=== PATIENT | female | born 1980 | race American Indian/Alaskan Native ===

== ENCOUNTER 2017-02-27 15:30 | Emergency (ER) | payer MEDICARE ==
[2017-02-27 16:42] VITALS: BP 186/106
[2017-02-27 17:05] LABS: Basophils % (Auto) 0.5 % (0.0-1.8); Eosinophils % (Auto) 0.4 % (0.0-4.3); Hematocrit 42.3 % (30.3-42.9); Hemoglobin 13.9 gm/dl (10.1-14.3); Mean Corpuscular HGB Conc 33 % (30-34); Mean Corpuscular Hemoglobin 31 pg (28-32); Mean Corpuscular Volume 95 fl (79-97); Platelet Count 293 K/mm3 (140-440); Red Blood Count 4.48 M/mm3 (3.65-5.03); Red Cell Distribution Width 15.7 % (13.2-15.2); White Blood Count 6.8 K/mm3 (4.5-11.0)
[2017-02-27 17:24] LABS: Alanine Aminotransferase 8 units/L (7-56); Alkaline Phosphatase 59 units/L (35-129); Anion Gap 18 mmol/L; BUN/Creatinine Ratio 7.77; Blood Urea Nitrogen 7 mg/dL (7-17); Calcium 9.2 mg/dL (8.4-10.2); Carbon Dioxide 25 mmol/L (22-30); Chloride 101.2 mmol/L (98-107); Glucose 89 mg/dL (65-100); Lipase 20 units/L (13-60); Sodium 141 mmol/L (137-145)
[2017-02-27 17:29] LABS: Potassium 2.8 mmol/L (3.6-5.0)
--- NOTE | 2017-03-03 19:11 | ED Elopement Review ---
ED Pt Elopement review - Results review Lab results: Laboratory Tests 02/27/17 02/27/17 16:44 16:44 WBC 6.8 RBC 4.48 Hgb 13.9 Hct 42.3 MCV 95 MCH 31 MCHC 33 RDW 15.7 H Plt Count 293 Lymph % (Auto) 34.1 [place] % (Auto) 7.7 H Eos % (Auto) 0.4 Baso % (Auto) 0.5 Lymph # 2.3 [place] # 0.5 Eos # 0.0 Baso # 0.0 Seg Neutrophils % 57.3 Seg Neutrophils # 3.9 Sodium 141 Potassium 2.8 L* Chloride 101.2 Carbon Dioxide 25 Anion Gap 18 BUN 7 Creatinine 0.9 Estimated GFR > 60 BUN/Creatinine Ratio 7.77 Glucose 89 Calcium 9.2 Total Bilirubin 1.10 AST 16 ALT 8 Alkaline Phosphatase 59 Total Protein 8.0 Albumin 4.0 Albumin/Globulin Ratio 1.0 Lipase 20 - Call Back decision Pt Call Back Decision: Pt to F/U with PMD (patient should follow-up with primary care doctor for hypokalemia)
== END 2017-02-27 23:30 | disposition left against medical advice (07) ==
LOC: ED 15:30
DX: R10.9 Unspecified abdominal pain (principal)
CPT/HCPCS: 36415; 80053; 83690; 85025

== ENCOUNTER 2017-06-29 15:47 | Emergency (ER) | payer MEDICARE ==
[2017-06-29] MEDS ORDERED: NACL 0.9% 500 ML 500 ML IV ONE (16:28)
[2017-06-29] MEDS ORDERED: MORPHINE IV ONE (17:30)
[2017-06-29] MEDS ORDERED: NACL 0.9% 1000 ML 2,000 ML IV ONE (17:30)
[2017-06-29] MEDS ORDERED: ZOFRAN IV ONE (17:31)
[2017-06-29] MEDS ORDERED: TYLENOL PO ONE (17:31)
[2017-06-29] MEDS ORDERED: DILAUDID IV ONE ×2 (17:31→22:12)
[2017-06-29] MEDS ORDERED: BENADRYL PO ONE (17:31)
--- NOTE | 2017-06-29 17:37 | Emergency Department Report ---
ED General Adult HPI - General Chief complaint: Abdominal Pain Stated complaint: SEVERE STOMACH PAIN Time Seen by Provider: 06/29/17 17:19 Source: patient, RN notes reviewed Mode of arrival: Wheelchair Limitations: No Limitations - History of Present Illness Initial comments: This is a 37-year-old female, the patient is previously known to this provider. She reports that her clinician oncology is Dr. Hanna at [facility]. She reports a history of cervical cancer, and reports that she is currently receiving cisplatin therapy. She comes to the ER with a complaint of diffuse abdominal pain and nausea and vomiting. She reports her pain is typically improved with hydromorphone, Zofran, and IV diphenhydramine. Abdominal pain is diffuse and sharp, it is "all over", and decreased with rest as well as the aforementioned pain medication. She is also missed a fever, malaise, but denies diarrhea. She denies irritative obstructive urinary symptoms. 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 -: Gradual Location: abdomen Severity scale (0 -10): 10 Quality: burning, stabbing, aching Consistency: intermittent Improves with: medication, rest Worsens with: movement Associated Symptoms: fever/chills, loss of appetite, malaise, nausea/vomiting, weakness - Related Data Allergies Allergy/AdvReac Type Severity Reaction Status Date / Time morphine AdvReac Hives Verified 06/29/17 16:24 naloxone HCl [From Narcan] AdvReac Itching Verified 06/29/17 16:25 ED Review of Systems ROS: Stated complaint: SEVERE STOMACH PAIN Other details as noted in HPI Constitutional: fever, malaise, weakness Eyes: denies: vision change ENT: denies: epistaxis Respiratory: denies: cough Cardiovascular: denies: chest pain Gastrointestinal: abdominal pain, nausea, vomiting Genitourinary: denies: dysuria Musculoskeletal: arthralgia, myalgia Skin: denies: lesions Neurological: weakness ED Past Medical Hx - Past Medical History Previous Medical History?: Yes Hx of Cancer: Yes Additional medical history: cervical CA - Surgical History Past Surgical History?: Yes Additional Surgical History: partial colon removed - Social History Smoking Status: Current Every Day Smoker Substance Use Type: None ED Physical Exam - General Limitations: No Limitations General appearance: alert, in no apparent distress - Head Head exam: Present: atraumatic, normocephalic - Eye Eye exam: Present: normal appearance, EOMI. Absent: nystagmus - ENT ENT exam: Present: normal exam, normal orophraynx, mucous membranes moist, normal external ear exam - Neck Neck exam: Present: normal inspection, full ROM. Absent: tenderness, meningismus - Respiratory Respiratory exam: Present: normal lung sounds bilaterally. Absent: respiratory distress, wheezes, rales, rhonchi, stridor, chest wall tenderness, accessory muscle use, decreased breath sounds, prolonged expiratory - Cardiovascular Cardiovascular Exam: Present: regular rate, normal rhythm, normal heart sounds. Absent: bradycardia, tachycardia, irregular rhythm, systolic murmur, diastolic murmur, rubs, gallop - GI/Abdominal GI/Abdominal exam: Present: soft, tenderness, normal bowel sounds. Absent: distended, guarding, rebound, rigid, pulsatile mass - Extremities Exam Extremities exam: Present: normal inspection, full ROM, normal capillary refill. Absent: pedal edema, joint swelling, calf tenderness - Back Exam Back exam: Present: normal inspection, full ROM. Absent: tenderness, CVA tenderness (R), CVA tenderness (L), muscle spasm, paraspinal tenderness, vertebral tenderness - Neurological Exam Neurological exam: Present: alert, oriented X3, other (Extraocular movements intact. Tongue midline. No facial droop. Facial sensation intact to light touch in the V1, V2, V3 distribution bilaterally. 5 and 5 strength in 4 extremities.. Sensation is intact to light touch in 4 extremities.). Absent: motor sensory deficit - Psychiatric Psychiatric exam: Present: normal affect, normal mood - Skin Skin exam: Present: warm, dry, intact, normal color. Absent: rash ED Course Vital Signs 06/29/17 06/29/17 06/29/17 16:19 16:56 16:57 Temperature 100.7 F H Pulse Rate 68 63 62 Respiratory 16 15 19 Rate Blood Pressure 148/97 Blood Pressure 152/100 [Right] O2 Sat by Pulse 98 100 99 Oximetry 06/29/17 06/29/17 06/29/17 17:00 17:15 17:30 Temperature Pulse Rate 62 59 L 61 Respiratory 17 13 16 Rate Blood Pressure 169/98 169/98 162/95 Blood Pressure [Right] O2 Sat by Pulse 99 100 100 Oximetry 06/29/17 06/29/17 06/29/17 17:45 18:00 18:15 Temperature Pulse Rate 65 79 74 Respiratory 15 16 15 Rate Blood Pressure 162/95 110/59 110/59 Blood Pressure [Right] O2 Sat by Pulse 100 96 97 Oximetry 06/29/17 06/29/17 06/29/17 18:21 18:57 19:00 Temperature Pulse Rate 53 L Respiratory 13 Rate Blood Pressure 110/59 120/81 Blood Pressure [Right] O2 Sat by Pulse 100 99 100 Oximetry 06/29/17 06/29/17 06/29/17 19:15 19:30 19:45 Temperature Pulse Rate 77 58 L 88 Respiratory 17 13 18 Rate Blood Pressure 110/59 123/80 123/80 Blood Pressure [Right] O2 Sat by Pulse 99 97 Oximetry 06/29/17 06/29/17 06/29/17 20:00 20:15 20:31 Temperature Pulse Rate 81 78 62 Respiratory 15 19 18 Rate Blood Pressure 116/81 116/81 168/108 Blood Pressure [Right] O2 Sat by Pulse 97 98 99 Oximetry 06/29/17 06/29/17 06/29/17 20:45 21:00 21:15 Temperature Pulse Rate 79 66 76 Respiratory 19 16 18 Rate Blood Pressure 168/108 160/105 160/105 Blood Pressure [Right] O2 Sat by Pulse 97 97 97 Oximetry 06/29/17 06/29/17 06/29/17 21:30 21:45 22:00 Temperature Pulse Rate 83 74 73 Respiratory 18 21 20 Rate Blood Pressure 161/94 161/94 167/92 Blood Pressure [Right] O2 Sat by Pulse 97 97 98 Oximetry 06/29/17 06/29/17 06/29/17 22:15 22:30 22:45 Temperature Pulse Rate 83 78 94 H Respiratory 19 15 22 Rate Blood Pressure 167/92 139/76 139/76 Blood Pressure [Right] O2 Sat by Pulse 98 96 95 Oximetry 06/29/17 06/29/17 06/29/17 23:00 23:15 23:30 Temperature Pulse Rate 89 83 80 Respiratory 15 15 15 Rate Blood Pressure 104/54 104/54 98/54 Blood Pressure [Right] O2 Sat by Pulse 96 96 95 Oximetry 06/29/17 23:45 Temperature Pulse Rate 76 Respiratory 14 Rate Blood Pressure 98/54 Blood Pressure [Right] O2 Sat by Pulse 97 Oximetry - EJ/Peripheral Line Neck L Time Out Performed: Yes Indications: multiple IV sites needed Skin Cleansed in Sterile Fashion: Yes Size: 18 Dressing Placed: Tegaderm Patient Tolerated Procedure: well ED Medical Decision Making - Lab Data Result diagrams: 06/29/17 Unknown 06/29/17 Unknown Vital Signs 06/29/17 06/29/17 06/29/17 16:19 16:56 16:57 Temperature 100.7 F H Pulse Rate 68 63 62 Respiratory 16 15 19 Rate Blood Pressure 148/97 Blood Pressure 152/100 [Right] O2 Sat by Pulse 98 100 99 Oximetry 06/29/17 06/29/17 06/29/17 17:00 17:15 17:30 Temperature Pulse Rate 62 59 L 61 Respiratory 17 13 16 Rate Blood Pressure 169/98 169/98 162/95 Blood Pressure [Right] O2 Sat by Pulse 99 100 100 Oximetry 06/29/17 06/29/17 06/29/17 17:45 18:00 18:15 Temperature Pulse Rate 65 79 74 Respiratory 15 16 15 Rate Blood Pressure 162/95 110/59 110/59 Blood Pressure [Right] O2 Sat by Pulse 100 96 97 Oximetry 06/29/17 06/29/17 06/29/17 18:21 18:57 19:00 Temperature Pulse Rate 53 L Respiratory 13 Rate Blood Pressure 110/59 120/81 Blood Pressure [Right] O2 Sat by Pulse 100 99 100 Oximetry 06/29/17 06/29/17 06/29/17 19:15 19:30 19:45 Temperature Pulse Rate 77 58 L 88 Respiratory 17 13 18 Rate Blood Pressure 110/59 123/80 123/80 Blood Pressure [Right] O2 Sat by Pulse 99 97 Oximetry Lab Results 06/29/17 06/29/17 06/29/17 Range/Units 19:28 Unknown Unknown WBC 6.5 (4.5-11.0) K/mm3 RBC 4.20 (3.65-5.03) M/mm3 Hgb 12.7 (10.1-14.3) gm/dl Hct 39.1 (30.3-42.9) % MCV 93 (79-97) fl MCH 30 (28-32) pg MCHC 33 (30-34) % RDW 14.5 (13.2-15.2) % Plt Count 263 (140-440) K/mm3 Lymph % (Auto) 25.8 (13.4-35.0) % [place] % (Auto) 6.1 (0.0-7.3) % Eos % (Auto) 0.1 (0.0-4.3) % Baso % (Auto) 1.1 (0.0-1.8) % Lymph # 1.7 (1.2-5.4) K/mm3 [place] # 0.4 (0.0-0.8) K/mm3 Eos # 0.0 (0.0-0.4) K/mm3 Baso # 0.1 (0.0-0.1) K/mm3 Seg Neutrophils % 66.9 (40.0-70.0) % Seg Neutrophils # 4.3 (1.8-7.7) K/mm3 PT 13.4 (12.2-14.9) Sec. INR 1.03 (0.87-1.13) VBG pH (7.320-7.420) Sodium (137-145) mmol/L Potassium (3.6-5.0) mmol/L Chloride (98-107) mmol/L Carbon Dioxide (22-30) mmol/L Anion Gap mmol/L BUN (7-17) mg/dL Creatinine (0.7-1.2) mg/dL Estimated GFR ml/min BUN/Creatinine Ratio % Glucose (65-100) mg/dL Lactic Acid 2.00 (0.7-2.0) mmol/L Calcium (8.4-10.2) mg/dL Total Bilirubin (0.1-1.2) mg/dL AST (5-40) units/L ALT (7-56) units/L Alkaline Phosphatase (35-129) units/L Total Protein (6.3-8.2) g/dL Albumin (3.9-5) g/dL Albumin/Globulin Ratio % Lipase (13-60) units/L 06/29/17 06/29/17 06/29/17 Range/Units Unknown Unknown Unknown WBC (4.5-11.0) K/mm3 RBC (3.65-5.03) M/mm3 Hgb (10.1-14.3) gm/dl Hct (30.3-42.9) % MCV (79-97) fl MCH (28-32) pg MCHC (30-34) % RDW (13.2-15.2) % Plt Count (140-440) K/mm3 Lymph % (Auto) (13.4-35.0) % [place] % (Auto) (0.0-7.3) % Eos % (Auto) (0.0-4.3) % Baso % (Auto) (0.0-1.8) % Lymph # (1.2-5.4) K/mm3 [place] # (0.0-0.8) K/mm3 Eos # (0.0-0.4) K/mm3 Baso # (0.0-0.1) K/mm3 Seg Neutrophils % (40.0-70.0) % Seg Neutrophils # (1.8-7.7) K/mm3 PT (12.2-14.9) Sec. INR (0.87-1.13) VBG pH 7.445 H (7.320-7.420) Sodium 141 (137-145) mmol/L Potassium 3.0 L (3.6-5.0) mmol/L Chloride 98.8 (98-107) mmol/L Carbon Dioxide 27 (22-30) mmol/L Anion Gap 18 mmol/L BUN 8 (7-17) mg/dL Creatinine 0.8 (0.7-1.2) mg/dL Estimated GFR > 60 ml/min BUN/Creatinine Ratio 10.00 % Glucose 102 H (65-100) mg/dL Lactic Acid 1.70 (0.7-2.0) mmol/L Calcium 9.0 (8.4-10.2) mg/dL Total Bilirubin 0.90 (0.1-1.2) mg/dL AST 15 (5-40) units/L ALT 9 (7-56) units/L Alkaline Phosphatase 57 (35-129) units/L Total Protein 8.1 (6.3-8.2) g/dL Albumin 4.0 (3.9-5) g/dL Albumin/Globulin Ratio 1.0 % Lipase 13 (13-60) units/L - Radiology Data Radiology results: report reviewed, image reviewed CT scan of the abdomen and pelvis with IV contrast demonstrates colitis, focal colon thickening, diffuse small bowel ileus, obstructing right-sided ureteropelvic stone. - Medical Decision Making Differential diagnosis: Radiation colitis, obstructive uropathy, enteritis, drug -seeking behavior, fever related to malignancy Assessment and plan: 37-year-old female with complex surgical history, oncologic history, with fever, nausea and vomiting, multiple CT scan findings. This hospital does not have urology available for consultation this evening, and given her fever, she will require urgent urologic consultation. Case discussed with medical oncologist at [facility], Dr. Thomas, at [place], who informed him that the patient has completed her chemotherapy in March of this year, and has known history of radiation colitis, and has had multiple hospital admissions. Case was also discussed with the Hospital physician at the same Hospital, Dr. Schulz, and she graciously accepted the patient as a transfer for definitive management for the numerous aforementioned findings. We are currently awaiting urologic consultation to call back from the [facility] As his hospital does not have urology on-call or available, and all the patient's oncologic records and care has been at the aforementioned facility, I believe it is in the patient's best interest to be transferred for definitive management. Critical care attestation.: If time is entered above; I have spent that time in minutes in the direct care of this critically ill patient, excluding procedure time. ED Disposition Clinical Impression: Obstructive uropathy, Acute febrile illness, Abdominal pain [facility] IP Is pt being admited?: No Does the pt Need Aspirin: No Condition: Good Instructions: Abdominal Pain (ED) Referrals: PRIMARY CARE, [Primary Care Provider] - 3-5 Days
[2017-06-29] MEDS ORDERED: MAXIPIME/NS 2 GM/100 ML 2 GM/100 ML BAG IV ONE (18:00)
[2017-06-29 18:02] LABS: Basophils % (Auto) 1.1 % (0.0-1.8); Eosinophils % (Auto) 0.1 % (0.0-4.3); Hematocrit 39.1 % (30.3-42.9); Hemoglobin 12.7 gm/dl (10.1-14.3); Mean Corpuscular HGB Conc 33 % (30-34); Mean Corpuscular Hemoglobin 30 pg (28-32); Mean Corpuscular Volume 93 fl (79-97); Platelet Count 263 K/mm3 (140-440); Red Cell Distribution Width 14.5 % (13.2-15.2); White Blood Count 6.5 K/mm3 (4.5-11.0)
[2017-06-29 18:10] LABS: INR 1.03 (0.87-1.13)
--- NOTE | 2017-06-29 18:12 | XRay Report ---
FINAL REPORT PROCEDURE: XR CHEST 1V AP TECHNIQUE: Chest radiograph anteroposterior view. CPT 68299 HISTORY: possible Sepsis COMPARISON: No prior studies are available for comparison. FINDINGS: Heart: Normal. Mediastinum/Vessels: Normal. Lungs/Pleural space: Normal. Bony thorax: No acute osseous abnormality. Life support devices: None. IMPRESSION: No acute cardiopulmonary abnormality.
[2017-06-29] MEDS ORDERED: NACL ONE (18:16)
[2017-06-29 18:18] LABS: Alanine Aminotransferase 9 units/L (7-56); Alkaline Phosphatase 57 units/L (35-129); Anion Gap 18 mmol/L; Blood Urea Nitrogen 8 mg/dL (7-17); Carbon Dioxide 27 mmol/L (22-30); Chloride 98.8 mmol/L (98-107); Glucose 102 mg/dL (65-100); Lipase 13 units/L (13-60); Sodium 141 mmol/L (137-145); Total Protein 8.1 g/dL (6.3-8.2)
--- NOTE | 2017-06-29 19:04 | Cat Scan Report ---
FINAL REPORT EXAM: CT ABDOMEN PELVIS W CON HISTORY: diffuse abdominal pain TECHNIQUE: CT abdomen and pelvis with intravenous contrast PRIORS: None. FINDINGS: No acute abnormality identified in the lung bases. No focal abnormality identified within the liver parenchyma. The spleen demonstrates normal size and attenuation. No pancreatic abnormalities seen. The kidneys demonstrate symmetric contrast enhancement. No evidence of hydronephrosis. There is right renal pelvicaliectasis. No obstructing calculus identified. Consideration given to right UPJ obstruction. The adrenal glands are unremarkable Abdominal aorta is normal in caliber. No pathologically enlarged lymph nodes are identified. No signs of free fluid or free air There is mild distention of fluid-filled small bowel loops likely reflecting ileus. There is edematous mucosal thickening of the sigmoid colon and rectum. Midline abdominal scarring noted is Urinary bladder is unremarkable. IMPRESSION: Mucosal thickening of the sigmoid and rectum likely reflecting colitis. Ulcerative colitis is a consideration. Mild prominence of small bowel loops most likely reflecting mild generalized ileus Right pelvicaliectasis concerning for UPJ obstruction
[2017-06-29] MEDS ORDERED: NACL 0.9% 1000 ML 1,000 ML IV ONE (19:54)
[2017-06-29] MEDS ORDERED: NACL 0.9% 1000 ML 1,000 ML ONE (19:58)
[2017-06-29] MEDS: KCL 10MEQ/100ML 10 MEQ/100 ML BAG IV SCH ×4 (20:01→23:42)
[2017-06-29] MEDS ORDERED: MAGNESIUM SULFATE 2GM/50ML 2 GM/50 ML BAG IV ONE (20:35)
[2017-06-30 02:12] VITALS: BP 124/74
== END 2017-06-30 02:12 | disposition short-term general hospital (02) ==
LOC: MERGE 15:47 → ED 15:47
DX: N13.9 Obstructive and reflux uropathy, unspecified (principal); F17.210 Nicotine dependence, cigarettes, uncomplicated; Z88.6 Allergy status to analgesic agent; Z88.8 Allergy status to other drugs, medicaments and biological substances
CPT/HCPCS: 36415; 36569; 71010; 74177; 80053; 82140; 82805; 83690; 83735; 85025; 85610; 96361; 96365; 96367; 96375; 99285; J0692; J1170; J2405; J3475; J3480; J7030; J7040; Q9967; J2270

== ENCOUNTER 2021-10-10 07:49 | Emergency (ER) | payer MEDICARE, MEDICAID ==
[2021-10-10] MEDS ORDERED: HYDROmorphone 1 MG/1 ML INJ IV ONE (08:28)
[2021-10-10] MEDS ORDERED: SODIUM CHLORIDE 0.9% 1000 ML 1,000 ML IV ONE (08:28)
[2021-10-10] MEDS ORDERED: ONDANSETRON 4 MG/2 ML INJ IV ONE (08:28)
[2021-10-10] MEDS ORDERED: diphenhydrAMINE 50 MG/ML VIAL IV ONE (08:29)
--- NOTE | 2021-10-10 08:39 | Emergency Department Report ---
HPI - General Chief Complaint: Nausea/Vomiting/Diarrhea Time Seen by Provider: 10/10/21 08:07 - HPI HPI: Room 24 (1 of 2) The patient is a 41-year-old female present with a chief complaint of right flank pain and stomach pain. The patient has a history of cervical CA and last received chemotherapy approximately 1 week ago. The patient states for the past 6 days she has had pain around her colostomy stoma. Patient states there has been an increase of output from her stoma but no other changes noted. Patient states for the past 3 days she has had pain in her right flank. Patient denies nausea vomiting or history of fever. The patient presents to the ED today with her daughter who is also a patient who presents with nausea and vomiting x1 w [place]. ED Past Medical Hx - Past Medical History Previous Medical History?: Yes Hx of Cancer: Yes (Cervical CA s/p chemo on XRT) Additional medical history: cervical CA, DVT - Surgical History Hx Cholecystectomy: Yes Additional Surgical History: partial colon removed. Colostomy. , Ureteral stent - Family History Family history: no significant - Social History Smoking Status: Current Every Day Smoker (Black and milds) Substance Use Type: Marijuana - Medications Home Medications: Home Medications Medication Instructions Recorded Confirmed Last Taken Type Dilaudid 8 mg PO QID 02/22/16 09/30/16 02/22/16 History Morphine TAB 60 mg PO BID 02/22/16 09/30/16 02/22/16 History Ciprofloxacin HCl [Ciprofloxacin 500 mg PO Q12H #20 tab 10/01/16 Unknown Rx TAB] Dicyclomine [Bentyl] 20 mg PO Q8H PRN #30 tablet 10/01/16 Unknown Rx Pantoprazole [Protonix] 40 mg PO QDAY #14 tablet 10/01/16 Unknown Rx Promethazine [Phenergan] 25 mg PO Q6HR PRN #15 tab 10/01/16 Unknown Rx metroNIDAZOLE [Flagyl] 500 mg PO Q8HR #30 tablet 10/01/16 Unknown Rx Phenazopyridine [Pyridium] 200 mg PO TID #6 tab 10/10/21 Unknown Rx Sulfamethoxazole/Trimethoprim 1 each PO BID #20 10/10/21 Unknown Rx [Bactrim DS TAB] levoFLOXacin [Levaquin TAB] 500 mg PO QDAY #10 tablet 10/10/21 Unknown Rx ED Review of Systems ROS: Stated complaint: N/V/D Other details as noted in HPI Constitutional: denies: fever Eyes: denies: eye pain ENT: denies: throat pain Respiratory: no symptoms reported Cardiovascular: denies: chest pain Endocrine: no symptoms reported Gastrointestinal: abdominal pain. denies: nausea, vomiting Genitourinary: denies: dysuria Musculoskeletal: back pain Neurological: denies: headache Physical Exam - Physical Exam Vital Signs: Vital Signs 10/10/21 08:05 Temperature 99.6 F Pulse Rate 106 H Respiratory 20 Rate Blood Pressure 128/64 [Right] O2 Sat by Pulse 97 Oximetry Physical Exam: GENERAL: The patient is well-developed well-nourished female lying on stretcher moaning appearing to be in moderate discomfort HEENT: Normocephalic. Atraumatic. Extraocular motions are intact. Patient has moist mucous membranes. NECK: Supple. Trachea midline CHEST/LUNGS: Clear to auscultation. There is no respiratory distress noted. HEART/CARDIOVASCULAR: Regular. There is no tachycardia. There is no gallop rub or murmur. ABDOMEN: Abdomen is soft, with tenderness to palpation bilateral lower quadrants. Stoma appears patent and healthy with output present colostomy bag. Patient has normal bowel sounds. There is no abdominal distention. SKIN: There is no rash. There is no edema. There is no diaphoresis. NEURO: The patient is awake, alert, and oriented. The patient is cooperative. The patient has no focal neurologic deficits. The patient has normal speech. GCS 15 MUSCULOSKELETAL: There is no evidence of acute injury. ED Course Vital Signs 10/10/21 08:05 Temperature 99.6 F Pulse Rate 106 H Respiratory 20 Rate Blood Pressure 128/64 [Right] O2 Sat by Pulse 97 Oximetry ED Medical Decision Making - Lab Data Result diagrams: 10/10/21 09:34 10/10/21 09:34 Laboratory Tests 10/10/21 10/10/21 10/10/21 09:34 09:34 09:34 WBC 8.6 RBC 4.44 Hgb 13.0 Hct 40.4 MCV 91 MCH 29 MCHC 32 RDW 14.8 Plt Count 267 Lymph % (Auto) 30.8 [place] % (Auto) 9.6 H Eos % (Auto) 1.0 Baso % (Auto) 0.4 Lymph # (Auto) 2.6 [place] # (Auto) 0.8 Eos # (Auto) 0.1 Baso # (Auto) 0.0 Seg Neutrophils % 58.2 Seg Neutrophils # 5.0 Sodium 135 L Potassium 3.1 L Chloride 101.4 Carbon Dioxide 15 L Anion Gap 22 BUN 30 H Creatinine 2.6 H Estimated GFR 24 BUN/Creatinine Ratio 12 Glucose 119 H Calcium 9.8 Total Bilirubin 0.70 AST 19 ALT 19 Alkaline Phosphatase 118 Total Protein 9.4 H Albumin 4.5 Albumin/Globulin Ratio 0.9 Lipase 37 Urine Color Urine Turbidity Urine pH Ur Specific [place] Urine Protein Urine Glucose (UA) Urine Ketones Urine Blood Urine Nitrite Urine Bilirubin Urine Urobilinogen Ur Leukocyte Esterase Urine WBC (Auto) Urine RBC (Auto) U Epithel Cells (Auto) Urine Bacteria (Auto) 10/10/21 Unknown WBC RBC Hgb Hct MCV MCH MCHC RDW Plt Count Lymph % (Auto) [place] % (Auto) Eos % (Auto) Baso % (Auto) Lymph # (Auto) [place] # (Auto) Eos # (Auto) Baso # (Auto) Seg Neutrophils % Seg Neutrophils # Sodium Potassium Chloride Carbon Dioxide Anion Gap BUN Creatinine Estimated GFR BUN/Creatinine Ratio Glucose Calcium Total Bilirubin AST ALT Alkaline Phosphatase Total Protein Albumin Albumin/Globulin Ratio Lipase Urine Color Yellow Urine Turbidity Turbid Urine pH 6.0 Ur Specific [place] 1.018 Urine Protein 100 mg/dl Urine Glucose (UA) Neg Urine Ketones Neg Urine Blood Mod Urine Nitrite Neg Urine Bilirubin Neg Urine Urobilinogen < 2.0 Ur Leukocyte Esterase Lg Urine WBC (Auto) > 182.0 H Urine RBC (Auto) 127.0 U Epithel Cells (Auto) 13.0 Urine Bacteria (Auto) 2+ - Radiology Data Radiology results: report reviewed (CT abdomen pelvis), image reviewed (CT abdomen pelvis) - Differential Diagnosis Pyelonephritis, renal colic, UTI, enteritis Critical care attestation.: If time is entered above; I have spent that time in minutes in the direct care of this critically ill patient, excluding procedure time. ED Disposition Clinical Impression: Pyelonephritis, Acute abdominal pain Disposition: HOME / SELF CARE / HOMELESS Is pt being admited?: No Does the pt Need Aspirin: No Condition: Stable Instructions: Pyelonephritis, Adult Additional Instructions: Return to the emergency department should you develop worsening symptoms, inability to tolerate food or liquids, high fever or any other concerns Prescriptions: Sulfamethoxazole/Trimethoprim [Bactrim DS TAB] 1 each PO BID #20 levoFLOXacin [Levaquin TAB] 500 mg PO QDAY #10 tablet Phenazopyridine [Pyridium] 200 mg PO TID #6 tab Referrals: PRIMARY CARE, [Primary Care Provider] - 3-5 Days Time of Disposition: 15:22
[2021-10-10 10:05] LABS: Basophils % (Auto) 0.4 % (0.0-1.8); Eosinophils # (Auto) 0.1 K/mm3 (0.0-0.4); Hematocrit 40.4 % (30.3-42.9); Lymphocytes # (Auto) 2.6 K/mm3 (1.2-5.4); Lymphocytes % (Auto) 30.8 % (13.4-35.0); Mean Corpuscular HGB Conc 32 % (30-34); Mean Corpuscular Volume 91 fl (79-97); Monocytes # (Auto) 0.8 K/mm3 (0.0-0.8); Monocytes % (Auto) 9.6 % (0.0-7.3); Platelet Count 267 K/mm3 (140-440); Red Blood Count 4.44 M/mm3 (3.65-5.03); Red Cell Distribution Width 14.8 % (13.2-15.2)
[2021-10-10 10:22] LABS: Albumin 4.5 g/dL (3.9-5); Calcium 9.8 mg/dL (8.4-10.2)
--- NOTE | 2021-10-10 12:29 | Cat Scan Report ---
CT ABDOMEN AND PELVIS WITHOUT CONTRAST INDICATION / CLINICAL INFORMATION: Right flank pain, pain at colostomy stoma. TECHNIQUE: Axial CT images were obtained through the abdomen and pelvis without IV contrast. Sagittal and ramirez l reformatted images. All CT scans at this location are performed using CT dose reduction for ALARA b y means of automated exposure control. COMPARISON: CT abdomen pelvis with contrast 09/30/2016 FINDINGS: LOWER CHEST: No significant abnormality. LIVER: No significant abnormality. GALLBLADDER: Surgically removed. BILE DUCTS: No significant abnormality. PANCREAS: No significant abnormality. SPLEEN: No significant abnormality. ADRENALS: No significant abnormality. RIGHT KIDNEY and URETER: A right ureteral stent extends from the right renal pelvis to the bladder. N o hydronephrosis. 1 or 2 punctate stones are identified in the right kidney. No focal renal lesion. LEFT KIDNEY and URETER: One or 2 punctate stones are identified in the left kidney. No hydronephrosis or focal renal lesion. STOMACH and SMALL BOWEL: No significant abnormality. COLON: Left abdomen diverting colostomy is suspected. No obvious abnormality is identified at the lef t lower quadrant stoma. No inflammatory changes or fluid collection. No evidence for colonic obstruct ion. APPENDIX: Not identified. PERITONEUM: No free fluid. No free air. No fluid collection. LYMPH NODES: No significant adenopathy. AORTA and ARTERIES: No significant abnormality. IVC and VEINS: No significant abnormality. URINARY BLADDER: No significant abnormality. REPRODUCTIVE ORGANS: The uterus appears small in size with calcifications likely representing small f ibroids. 8 1.6 cm left ovarian cyst is identified. The right adnexa is unremarkable. ADDITIONAL FINDINGS: None. SKELETAL SYSTEM: No significant abnormality. IMPRESSION: No acute inflammatory process is appreciated. Nonobstructing bilateral nephrolithiasis is identified. A right ureteral stent is identified with no evidence for hydronephrosis. Unremarkable appearance of the colostomy in the left abdomen. Mild uterine fibroid disease. 1.6 cm left ovarian cyst. Signer Name: Dayday Membreno Jr, MD Signed: 10/10/2021 12:24 PM Workstation Name: [id number]
[2021-10-10 14:36] LABS: Bacteria,Urine 2+ /HPF (Negative); Bilirubin,Urine NEG (Negative); Blood,Urine MOD (Negative); Color,Urine Yellow (Yellow); Urobilinogen,Urine < 2.0 mg/dL (<2.0)
[2021-10-10 14:38] LABS: WBC,Urine > 182.0 /HPF (0.0-6.0)
[2021-10-10] MEDS ORDERED: cefTRIAXone/NS 1 GM/50 ML 1 GM/50 ML BAG IV ONE (14:52)
[2021-10-10] MEDS ORDERED: POTASSIUM CHLORIDE ER 20 MEQ TAB PO ONE (14:53)
[2021-10-10] MEDS ORDERED: HYDROcodone/ACETAMINOPHEN 5-325 MG TAB PO ONE (15:29)
[2021-10-10 17:04] VITALS: BP 122/93
== END 2021-10-10 16:00 | disposition home or self-care (01) ==
LOC: ED 07:49
DX: N12 Tubulo-interstitial nephritis, not specified as acute or chronic (principal); R10.9 Unspecified abdominal pain
CPT/HCPCS: 36415; 74176; 80053; 81001; 83690; 85025; 96361; 96365; 96375; 99284; J1170; J1200; J2405; J7030; Q0162

== ENCOUNTER 2021-10-11 04:04 | Emergency (ER) | payer MEDICARE, MEDICAID ==
[2021-10-11] MEDS ORDERED: SODIUM CHLORIDE 0.9% 1000 ML 1,000 ML IV ONE ×2 (04:32→06:19)
[2021-10-11] MEDS ORDERED: fentaNYL 100 MCG/2 ML INJ IV ONE (04:32)
[2021-10-11] MEDS ORDERED: ONDANSETRON 4 MG/2 ML INJ IV ONE ×4 (04:43→15:26)
[2021-10-11] MEDS ORDERED: HYDROmorphone 1 MG/1 ML INJ IV ONE ×3 (06:19→15:24)
[2021-10-11] MEDS ORDERED: cefTRIAXone/NS 1 GM/50 ML 1 GM/50 ML BAG IV ONE (08:18)
[2021-10-11 08:46] LABS: Basophils # (Auto) 0.1 K/mm3 (0.0-0.1); Basophils % (Auto) 0.9 % (0.0-1.8); Eosinophils % (Auto) 0.1 % (0.0-4.3); Lymphocytes # (Auto) 1.8 K/mm3 (1.2-5.4); Lymphocytes % (Auto) 18.8 % (13.4-35.0); Mean Corpuscular HGB Conc 31 % (30-34); Mean Corpuscular Volume 90 fl (79-97); Monocytes # (Auto) 0.5 K/mm3 (0.0-0.8); Monocytes % (Auto) 5.6 % (0.0-7.3); Platelet Count 261 K/mm3 (140-440); Red Blood Count 4.73 M/mm3 (3.65-5.03); Red Cell Distribution Width 14.5 % (13.2-15.2)
[2021-10-11 08:49] LABS: Hematocrit 42.6 % (30.3-42.9); Hemoglobin 13.1 gm/dl (10.1-14.3)
[2021-10-11 09:04] LABS: Albumin 4.5 g/dL (3.9-5); Calcium 9.9 mg/dL (8.4-10.2)
[2021-10-11] MEDS ORDERED: ONDANSETRON 4 MG/2 ML INJ IM ONE (09:28)
--- NOTE | 2021-10-11 10:00 | Emergency Department Report ---
ED Abdominal Pain HPI - General Chief Complaint: Abdominal Pain Stated Complaint: ABDOMINAL PAIN Time Seen by Provider: 10/11/21 06:17 Source: patient, EMS Mode of arrival: Ambulatory Limitations: No Limitations - History of Present Illness Initial Comments: Patient arrived with no clothing and just wrapped in a comforter. Patient is crying out in pain. has ordered pain and nausea medication. Will continue to monitor. MD Complaint: abdominal pain -: week(s), month(s) Location: diffuse Severity scale (0 -10): 8 Quality: aching Consistency: constant Associated Symptoms: nausea, vomiting - Related Data Home Medications Medication Instructions Recorded Confirmed Last Taken Dilaudid 8 mg PO QID 02/22/16 09/30/16 02/22/16 Morphine TAB 60 mg PO BID 02/22/16 09/30/16 02/22/16 Previous Rx's Medication Instructions Recorded Last Taken Type Ciprofloxacin HCl [Ciprofloxacin 500 mg PO Q12H #20 tab 10/01/16 Unknown Rx TAB] Dicyclomine [Bentyl] 20 mg PO Q8H PRN #30 tablet 10/01/16 Unknown Rx Pantoprazole [Protonix] 40 mg PO QDAY #14 tablet 10/01/16 Unknown Rx Promethazine [Phenergan] 25 mg PO Q6HR PRN #15 tab 10/01/16 Unknown Rx metroNIDAZOLE [Flagyl] 500 mg PO Q8HR #30 tablet 10/01/16 Unknown Rx Phenazopyridine [Pyridium] 200 mg PO TID #6 tab 10/10/21 Unknown Rx Sulfamethoxazole/Trimethoprim 1 each PO BID #20 10/10/21 Unknown Rx [Bactrim DS TAB] levoFLOXacin [Levaquin TAB] 500 mg PO QDAY #10 tablet 10/10/21 Unknown Rx Allergies Allergy/AdvReac Type Severity Reaction Status Date / Time morphine Allergy Itching Verified 09/30/16 20:53 naloxone HCl [From Narcan] AdvReac Itching Verified 06/29/17 16:25 ED Review of Systems ROS: Stated complaint: ABDOMINAL PAIN Other details as noted in HPI Constitutional: denies: chills, fever Eyes: denies: eye pain, eye discharge, vision change ENT: denies: ear pain, throat pain Respiratory: denies: cough, shortness of breath, wheezing Cardiovascular: denies: chest pain, palpitations Endocrine: no symptoms reported Gastrointestinal: denies: abdominal pain, nausea, diarrhea Genitourinary: denies: urgency, dysuria, discharge Musculoskeletal: denies: back pain, joint swelling, arthralgia Skin: denies: rash, lesions Neurological: denies: headache, weakness, paresthesias Psychiatric: denies: anxiety, depression Hematological/Lymphatic: denies: easy bleeding, easy bruising ED Past Medical Hx - Past Medical History Previous Medical History?: Yes Hx Hypertension: Yes Hx CVA: No Hx Heart Attack/AMI: No Hx Congestive Heart Failure: No Hx Diabetes: No Hx Deep Vein Thrombosis: No Hx Pulmonary Embolism: No Hx GERD: No Hx Liver Disease: No Hx Renal Disease: No Hx of Cancer: Yes (Cervical) Hx Sickle Cell Disease: No Hx Arthritis: No Hx Headaches / Migraines: No Hx Seizures: No Hx Psychiatric Treatment: No Hx Asthma: No Hx COPD: No Hx Tuberculosis: No Hx Dementia: No Hx HIV: No Additional medical history: cervical CA, DVT, Pericarditis, Ostomy - Surgical History Past Surgical History?: Yes Hx Coronary Stent: No Hx Open Heart Surgery: No Hx Pacemaker: No Hx Internal Defibrillator: No Hx Cholecystectomy: Yes Hx Appendectomy: No Hx Breast Surgery: No Additional Surgical History: partial colon removed. Colostomy. , Ureteral stent - Social History Smoking Status: Never Smoker - Medications Home Medications: Home Medications Medication Instructions Recorded Confirmed Last Taken Type Dilaudid 8 mg PO QID 02/22/16 09/30/16 02/22/16 History Morphine TAB 60 mg PO BID 02/22/16 09/30/16 02/22/16 History Ciprofloxacin HCl [Ciprofloxacin 500 mg PO Q12H #20 tab 10/01/16 Unknown Rx TAB] Dicyclomine [Bentyl] 20 mg PO Q8H PRN #30 tablet 10/01/16 Unknown Rx Pantoprazole [Protonix] 40 mg PO QDAY #14 tablet 10/01/16 Unknown Rx Promethazine [Phenergan] 25 mg PO Q6HR PRN #15 tab 10/01/16 Unknown Rx metroNIDAZOLE [Flagyl] 500 mg PO Q8HR #30 tablet 10/01/16 Unknown Rx Phenazopyridine [Pyridium] 200 mg PO TID #6 tab 10/10/21 Unknown Rx Sulfamethoxazole/Trimethoprim 1 each PO BID #20 10/10/21 Unknown Rx [Bactrim DS TAB] levoFLOXacin [Levaquin TAB] 500 mg PO QDAY #10 tablet 10/10/21 Unknown Rx ED Physical Exam - General Limitations: No Limitations General appearance: cachectic - Head Head exam: Present: atraumatic - Eye Eye exam: Present: normal appearance Pupils: Present: normal accommodation - ENT ENT exam: Present: mucous membranes dry - Neck Neck exam: Present: normal inspection - Cardiovascular Cardiovascular Exam: Present: regular rate - GI/Abdominal GI/Abdominal exam: Present: other (colostomy bag in left side ) ED Course Vital Signs 10/11/21 10/11/21 10/11/21 04:11 05:41 05:43 Temperature 98.4 F 98.4 F Pulse Rate 98 H 104 H Respiratory 22 20 20 Rate Blood Pressure 121/85 108/87 [Left] O2 Sat by Pulse 99 99 99 Oximetry 10/11/21 07:55 Temperature Pulse Rate 82 Respiratory 18 Rate Blood Pressure 130/94 [Left] O2 Sat by Pulse 100 Oximetry - Reevaluation(s) Reevaluation #1: 10/11/21 09:58 work up shwoed dehdyration fluids given pain control, recent work up was unremarkabl e, ED Medical Decision Making - Lab Data Result diagrams: 10/11/21 07:58 10/11/21 07:58 Critical care attestation.: If time is entered above; I have spent that time in minutes in the direct care of this critically ill patient, excluding procedure time. ED Disposition Clinical Impression: UTI (urinary tract infection), Abdominal pain Disposition: HOME / SELF CARE / HOMELESS Is pt being admited?: No Does the pt Need Aspirin: No Condition: Stable Instructions: Abdominal Pain (ED) Referrals: PRIMARY CARE,MD [Primary Care Provider] - 3-5 Days
[2021-10-11 16:03] VITALS: BP 130/74
== END 2021-10-11 17:11 | disposition home or self-care (01) ==
LOC: ED 04:04
DX: N39.0 Urinary tract infection, site not specified (principal); R10.9 Unspecified abdominal pain; I31.9 Disease of pericardium, unspecified; Z80.49 Family history of malignant neoplasm of other genital organs; Z91.09 Other allergy status, other than to drugs and biological substances; Z98.890 Other specified postprocedural states; I10 Essential (primary) hypertension; Z93.3 Colostomy status; Z88.6 Allergy status to analgesic agent
CPT/HCPCS: 36415; 80053; 83690; 85025; 96361; 96365; 96375; 96376; 99284; J0696; J1170; J2405; J3010; J7030; Q0162

== ENCOUNTER 2021-12-05 15:08 | Observation (INO) | payer MEDICARE ==
[2021-12-05] MEDS ORDERED: SODIUM CHLORIDE 0.9% 1000 ML 1,000 ML IV ONE ×2 (16:48→20:28)
--- NOTE | 2021-12-05 16:54 | Emergency Department Report ---
HPI - General Chief Complaint: Nausea/Vomiting/Diarrhea Time Seen by Provider: 12/05/21 16:35 - HPI HPI: 41-year-old female presents to the emergency department via EMS from home with complaint of a 2-day history of nausea with vomiting, and per EMS the patient also has been having some decreased alertness. Apparently the patient was found by either family or roommate in the bathtub. At the time of my examination she is extremely sleepy/somnolent and is therefore currently a poor historian. She has a history of cervical cancer. As of October of this year she was undergoing chemotherapy. She has a colostomy in place. Previous records have been reviewed and there are diagnoses of short gut syndrome, intractable nausea vomiting, polysubstance abuse, hepatomegaly and uterine fibroids. ED Past Medical Hx - Past Medical History Hx Hypertension: Yes Hx CVA: No Hx Heart Attack/AMI: No Hx Congestive Heart Failure: No Hx Diabetes: No Hx Deep Vein Thrombosis: No Hx Pulmonary Embolism: No Hx GERD: No Hx Liver Disease: No Hx Renal Disease: No Hx Sickle Cell Disease: No Hx Arthritis: No Hx Headaches / Migraines: No Hx Seizures: No Hx Psychiatric Treatment: No Hx Asthma: No Hx COPD: No Hx Tuberculosis: No Hx Dementia: No Hx HIV: No Additional medical history: cervical CA, DVT, Pericarditis, Ostomy - Surgical History Hx Coronary Stent: No Hx Open Heart Surgery: No Hx Pacemaker: No Hx Internal Defibrillator: No Hx Cholecystectomy: Yes Hx Appendectomy: No Hx Breast Surgery: No Additional Surgical History: partial colon removed. Colostomy. , Ureteral stent - Social History Smoking Status: Never Smoker - Medications Home Medications: Home Medications Medication Instructions Recorded Confirmed Last Taken Type Dilaudid 8 mg PO QID 02/22/16 09/30/16 02/22/16 History Morphine TAB 60 mg PO BID 02/22/16 09/30/16 02/22/16 History Ciprofloxacin HCl [Ciprofloxacin 500 mg PO Q12H #20 tab 10/01/16 Unknown Rx TAB] Dicyclomine [Bentyl] 20 mg PO Q8H PRN #30 tablet 10/01/16 Unknown Rx Pantoprazole [Protonix] 40 mg PO QDAY #14 tablet 10/01/16 Unknown Rx Promethazine [Phenergan] 25 mg PO Q6HR PRN #15 tab 10/01/16 Unknown Rx metroNIDAZOLE [Flagyl] 500 mg PO Q8HR #30 tablet 10/01/16 Unknown Rx Phenazopyridine [Pyridium] 200 mg PO TID #6 tab 10/10/21 Unknown Rx Sulfamethoxazole/Trimethoprim 1 each PO BID #20 10/10/21 Unknown Rx [Bactrim DS TAB] levoFLOXacin [Levaquin TAB] 500 mg PO QDAY #10 tablet 10/10/21 Unknown Rx ED Review of Systems ROS: Stated complaint: NAUSEA/VOMITING Other details as noted in HPI Comment: Unobtainable due to pts medical conditions Physical Exam - Physical Exam Vital Signs: Vital Signs 12/05/21 15:14 Temperature 98 F Pulse Rate 67 Respiratory 20 Rate Blood Pressure 130/88 [Left] O2 Sat by Pulse 100 Oximetry Physical Exam: GENERAL: The patient is well-developed well-nourished. HENT: Normocephalic. Atraumatic. Patient has moist mucous membranes. EYES: Pupils equal reactive to light bilaterally. NECK: Supple. Trachea is midline. CHEST/LUNGS: Clear to auscultation. There is no respiratory distress noted. HEART/CARDIOVASCULAR: Regular. There is no tachycardia. There is no murmur. ABDOMEN: Abdomen is soft, nontender. Patient has normal bowel sounds. There is no abdominal distention. Colostomy and bag in place. No signs of infection. SKIN: Skin is warm and dry. NEURO: Patient is somnolent. She will briefly open her eyes to tactile and verbal stimuli but will not follow any commands and remains nonverbal at this time. MUSCULOSKELETAL: There is no tenderness or deformity. ED Course Vital Signs 12/05/21 15:14 Temperature 98 F Pulse Rate 67 Respiratory 20 Rate Blood Pressure 130/88 [Left] O2 Sat by Pulse 100 Oximetry ED Medical Decision Making - Lab Data Result diagrams: 12/05/21 16:53 12/05/21 16:53 Lab Results 12/05/21 12/05/21 12/05/21 Range/Units 16:53 16:53 16:53 WBC 7.7 (4.5-11.0) K/mm3 RBC 3.70 (3.65-5.03) M/mm3 Hgb 11.4 (10.1-14.3) gm/dl Hct 34.3 (30.3-42.9) % MCV 93 (79-97) fl MCH 31 (28-32) pg MCHC 33 (30-34) % RDW 16.3 H (13.2-15.2) % Plt Count 353 (140-440) K/mm3 Lymph % (Auto) 16.4 (13.4-35.0) % [place] % (Auto) 4.3 (0.0-7.3) % Eos % (Auto) 0.1 (0.0-4.3) % Baso % (Auto) 0.6 (0.0-1.8) % Lymph # (Auto) 1.3 (1.2-5.4) K/mm3 [place] # (Auto) 0.3 (0.0-0.8) K/mm3 Eos # (Auto) 0.0 (0.0-0.4) K/mm3 Baso # (Auto) 0.0 (0.0-0.1) K/mm3 Seg Neutrophils % 78.6 H (40.0-70.0) % Seg Neutrophils # 6.1 (1.8-7.7) K/mm3 PT 13.9 (12.2-14.9) Sec. INR 0.97 (0.87-1.13) APTT 24.7 (24.2-36.6) Sec. Sodium 140 (137-145) mmol/L Potassium 3.5 L (3.6-5.0) mmol/L Chloride 105.0 (98-107) mmol/L Carbon Dioxide 19 L (22-30) mmol/L Anion Gap 20 mmol/L BUN 23 H (7-17) mg/dL Creatinine 2.1 H (0.6-1.2) mg/dL Estimated GFR 31 ml/min BUN/Creatinine Ratio 11 % Glucose 128 H (65-100) mg/dL POC Glucose (70-105) mg/dL Calcium 9.9 (8.4-10.2) mg/dL Total Bilirubin 0.70 (0.1-1.2) mg/dL AST 13 (5-40) units/L ALT 8 (7-56) units/L Alkaline Phosphatase 97 (35-129) units/L Ammonia (25-60) umol/L Total Protein 9.3 H (6.3-8.2) g/dL Albumin 4.6 (3.9-5) g/dL Albumin/Globulin Ratio 1.0 % TSH (0.270-4.200) mlU/mL Plasma/Serum Alcohol (0-0.07) % 12/05/21 12/05/21 12/05/21 Range/Units 16:53 16:53 16:53 WBC (4.5-11.0) K/mm3 RBC (3.65-5.03) M/mm3 Hgb (10.1-14.3) gm/dl Hct (30.3-42.9) % MCV (79-97) fl MCH (28-32) pg MCHC (30-34) % RDW (13.2-15.2) % Plt Count (140-440) K/mm3 Lymph % (Auto) (13.4-35.0) % [place] % (Auto) (0.0-7.3) % Eos % (Auto) (0.0-4.3) % Baso % (Auto) (0.0-1.8) % Lymph # (Auto) (1.2-5.4) K/mm3 [place] # (Auto) (0.0-0.8) K/mm3 Eos # (Auto) (0.0-0.4) K/mm3 Baso # (Auto) (0.0-0.1) K/mm3 Seg Neutrophils % (40.0-70.0) % Seg Neutrophils # (1.8-7.7) K/mm3 PT (12.2-14.9) Sec. INR (0.87-1.13) APTT (24.2-36.6) Sec. Sodium (137-145) mmol/L Potassium (3.6-5.0) mmol/L Chloride (98-107) mmol/L Carbon Dioxide (22-30) mmol/L Anion Gap mmol/L BUN (7-17) mg/dL Creatinine (0.6-1.2) mg/dL Estimated GFR ml/min BUN/Creatinine Ratio % Glucose (65-100) mg/dL POC Glucose (70-105) mg/dL Calcium (8.4-10.2) mg/dL Total Bilirubin (0.1-1.2) mg/dL AST (5-40) units/L ALT (7-56) units/L Alkaline Phosphatase (35-129) units/L Ammonia 57.0 (25-60) umol/L Total Protein (6.3-8.2) g/dL Albumin (3.9-5) g/dL Albumin/Globulin Ratio % TSH 0.178 L (0.270-4.200) mlU/mL Plasma/Serum Alcohol < 0.01 (0-0.07) % 12/05/21 Range/Units 17:13 WBC (4.5-11.0) K/mm3 RBC (3.65-5.03) M/mm3 Hgb (10.1-14.3) gm/dl Hct (30.3-42.9) % MCV (79-97) fl MCH (28-32) pg MCHC (30-34) % RDW (13.2-15.2) % Plt Count (140-440) K/mm3 Lymph % (Auto) (13.4-35.0) % [place] % (Auto) (0.0-7.3) % Eos % (Auto) (0.0-4.3) % Baso % (Auto) (0.0-1.8) % Lymph # (Auto) (1.2-5.4) K/mm3 [place] # (Auto) (0.0-0.8) K/mm3 Eos # (Auto) (0.0-0.4) K/mm3 Baso # (Auto) (0.0-0.1) K/mm3 Seg Neutrophils % (40.0-70.0) % Seg Neutrophils # (1.8-7.7) K/mm3 PT (12.2-14.9) Sec. INR (0.87-1.13) APTT (24.2-36.6) Sec. Sodium (137-145) mmol/L Potassium (3.6-5.0) mmol/L Chloride (98-107) mmol/L Carbon Dioxide (22-30) mmol/L Anion Gap mmol/L BUN (7-17) mg/dL Creatinine (0.6-1.2) mg/dL Estimated GFR ml/min BUN/Creatinine Ratio % Glucose (65-100) mg/dL POC Glucose 142 H (70-105) mg/dL Calcium (8.4-10.2) mg/dL Total Bilirubin (0.1-1.2) mg/dL AST (5-40) units/L ALT (7-56) units/L Alkaline Phosphatase (35-129) units/L Ammonia (25-60) umol/L Total Protein (6.3-8.2) g/dL Albumin (3.9-5) g/dL Albumin/Globulin Ratio % TSH (0.270-4.200) mlU/mL Plasma/Serum Alcohol (0-0.07) % - Radiology Data Radiology results: report reviewed CHEST 1 VIEW 12/05/2021 8:16 PM INDICATION / CLINICAL INFORMATION: AMS. COMPARISON: None available. FINDINGS: SUPPORT DEVICES: None. HEART / MEDIASTINUM: No significant abnormality. LUNGS / PLEURA: Mild increased density seen within the right lower lung. There is a nodular density suggested measuring 1.5 cm. Follow-up chest x-ray or CT is recommended. No pneumothorax. ADDITIONAL FINDINGS: No significant additional findings. IMPRESSION: 1. There is a nodular density suggested measuring 1.5 cm. Follow-up chest x-ray or CT is recommended. CT ABDOMEN AND PELVIS WITHOUT CONTRAST INDICATION / CLINICAL INFORMATION: Abd pain. TECHNIQUE: Axial CT images were obtained through the abdomen and pelvis without IV contrast. All CT scans at this location are performed using CT dose reduction for ALARA by means of automated exposure control. COMPARISON: CT dated 10/10/2021. FINDINGS: LOWER CHEST: There is bibasilar volume loss. LIVER: No significant abnormality GALLBLADDER/BILIARY TREE: Cholecystectomy. PANCREAS: No significant abnormality SPLEEN: No significant abnormality ADRENALS: No significant abnormality RIGHT KIDNEY: Right ureteral stent remains in stable position. No urolithiasis or hydronephrosis. LEFT KIDNEY: Punctate nonobstructive stones in the left kidney. Left-sided extrarenal pelvis is again seen. There is no hydronephrosis. No ureteral stone. URINARY BLADDER: No significant abnormality REPRODUCTIVE ORGANS: Stable calcifications in the region of the uterus. BOWEL: Postoperative changes with left lower quadrant diverting colostomy. No evidence of acute bowel inflammation or obstruction. LYMPH NODES: No significant adenopathy. VASCULATURE: No significant abnormality. OTHER: No free air, free fluid, or focal fluid collection is identified. SKELETAL SYSTEM: No acute osseous findings. IMPRESSION: 1. No acute abnormality in the abdomen or pelvis. No evidence of bowel inflammation or obstruction. 2. Stable position of right ureteral stent without hydronephrosis. Punctate nonobstructive left nephrolithiasis. No ureteral stone or hydronephrosis on the left. 3. Other st able chronic, postoperative findings as above. CT head/brain wo con INDICATION / CLINICAL INFORMATION: 41 years Female; AMS. TECHNIQUE: Routine CT head without contrast. All CT scans at this location are performed using CT dose reduction for ALARA by means of automated exposure control. COMPARISON: None. FINDINGS: BRAIN / INTRACRANIAL CONTENTS: No acute hemorrhage, mass effect, midline shift, hydrocephalus, or acute, large territorial infarct. No signs of significant atrophy or chronic infarct. No significant white matter abnormality seen. CRANIOCERVICAL JUNCTION: No significant abnormality. ORBITS: No significant abnormality of visualized orbits. SINUSES / MASTOIDS: Visualized paranasal sinuses and mastoid air cells are essentially clear. ADDITIONAL FINDINGS: None. IMPRESSION: 1. No focal mass, hemorrhage, hydrocephalus, or acute, large territorial infarct. - Medical Decision Making This patient presents with a 2-day history of nausea with vomiting, abdominal pain. There was also report that the patient has been having some intermittent or transient somnolence. This does appear to be true as patient is hard to arouse during my initial examination. However, 10 minutes later the patient is seen awake, alert, yelling out in pain and vomiting into a basin, sometimes causing herself to vomit. She has generalized abdominal tenderness to palpation. The abdomen is soft, nondistended. Overall the patient appears ill, frail and cachectic. Once we were able to establish a peripheral IV, the patient was given IV fluid resuscitation, antiemetics, pain medication. She did require multiple doses of these medications and still complains of significant abdominal pain. CT of the head does not show any hemorrhage, large vessel occlusion, or any other acute process. CT of the abdomen pelvis does not show any acute process or etiology of the patient's discomfort, although she is reported to have cervical cancer. Chest x-ray shows concern for a nodular density. The patient will be admitted to the hospital for further evaluation and treatm ent and was accepted for admission by the hospitalist, Dr. Piedra. Critical Care Time: No Critical care attestation.: If time is entered above; I have spent that time in minutes in the direct care of this critically ill patient, excluding procedure time. ED Disposition Clinical Impression: Intractable abdominal pain, Intractable nausea and vomiting, Dehydration Failure to thrive Qualifiers: Failure to thrive age range: in adult Qualified Code(s): R62.7 - Adult failure to thrive Disposition: 09 ADMITTED INPATIENT Is pt being admited?: Yes Condition: Serious Time of Disposition: 23:56
[2021-12-05 17:42] LABS: Basophils % (Auto) 0.6 % (0.0-1.8); Eosinophils % (Auto) 0.1 % (0.0-4.3); Hematocrit 34.3 % (30.3-42.9); Hemoglobin 11.4 gm/dl (10.1-14.3); Lymphocytes # (Auto) 1.3 K/mm3 (1.2-5.4); Lymphocytes % (Auto) 16.4 % (13.4-35.0); Mean Corpuscular HGB Conc 33 % (30-34); Mean Corpuscular Volume 93 fl (79-97); Monocytes # (Auto) 0.3 K/mm3 (0.0-0.8); Monocytes % (Auto) 4.3 % (0.0-7.3); Platelet Count 353 K/mm3 (140-440); Red Cell Distribution Width 16.3 % (13.2-15.2)
[2021-12-05 17:47] LABS: INR 0.97 (0.87-1.13)
[2021-12-05 17:48] LABS: Partial Thromboplastin Time 24.7 Sec. (24.2-36.6)
[2021-12-05 17:50] LABS: Albumin 4.6 g/dL (3.9-5); Calcium 9.9 mg/dL (8.4-10.2)
[2021-12-05] MEDS ORDERED: ONDANSETRON 4 MG ODT TAB PO ONE (18:04)
[2021-12-05] MEDS ORDERED: HYDROmorphone 1 MG/1 ML INJ IM ONE (18:39)
[2021-12-05] MEDS ORDERED: diphenhydrAMINE 50 MG/ML VIAL IV ONE (19:19)
[2021-12-05] MEDS ORDERED: METOCLOPRAMIDE 10 MG/2 ML INJ IV ONE (20:27)
[2021-12-05] MEDS ORDERED: HYDROmorphone 1 MG/1 ML INJ IV ONE (20:29)
--- NOTE | 2021-12-05 20:36 | XRay Report ---
CHEST 1 VIEW 12/05/2021 8:16 PM INDICATION / CLINICAL INFORMATION: AMS. COMPARISON: None available. FINDINGS: SUPPORT DEVICES: None. HEART / MEDIASTINUM: No significant abnormality. LUNGS / PLEURA: Mild increased density seen within the right lower lung. There is a nodular density s uggested measuring 1.5 cm. Follow-up chest x-ray or CT is recommended. No pneumothorax. ADDITIONAL FINDINGS: No significant additional findings. IMPRESSION: 1. There is a nodular density suggested measuring 1.5 cm. Follow-up chest x-ray or CT is recommended. Signer Name: Dominik Paige MD Signed: 12/05/2021 8:32 PM Workstation Name: [id number]
--- NOTE | 2021-12-05 21:54 | Cat Scan Report ---
CT head/brain wo con INDICATION / CLINICAL INFORMATION: 41 years Female; AMS. TECHNIQUE: Routine CT head without contrast. All CT scans at this location are performed using CT dos e reduction for ALARA by means of automated exposure control. COMPARISON: None. FINDINGS: BRAIN / INTRACRANIAL CONTENTS: No acute hemorrhage, mass effect, midline shift, hydrocephalus, or acu te, large territorial infarct. No signs of significant atrophy or chronic infarct. No significant whi te matter abnormality seen. CRANIOCERVICAL JUNCTION: No significant abnormality. ORBITS: No significant abnormality of visualized orbits. SINUSES / MASTOIDS: Visualized paranasal sinuses and mastoid air cells are essentially clear. ADDITIONAL FINDINGS: None. IMPRESSION: 1. No focal mass, hemorrhage, hydrocephalus, or acute, large territorial infarct. Signer Name: Yang Mcrae MD, III Signed: 12/05/2021 9:49 PM Workstation Name: [id number]
--- NOTE | 2021-12-05 21:56 | Cat Scan Report ---
CT ABDOMEN AND PELVIS WITHOUT CONTRAST INDICATION / CLINICAL INFORMATION: Abd pain. TECHNIQUE: Axial CT images were obtained through the abdomen and pelvis without IV contrast. All CT scans at this location are performed using CT dose reduction for ALARA by means of automated exposure control. COMPARISON: CT dated 10/10/2021. FINDINGS: LOWER CHEST: There is bibasilar volume loss. LIVER: No significant abnormality GALLBLADDER/BILIARY TREE: Cholecystectomy. PANCREAS: No significant abnormality SPLEEN: No significant abnormality ADRENALS: No significant abnormality RIGHT KIDNEY: Right ureteral stent remains in stable position. No urolithiasis or hydronephrosis. LEFT KIDNEY: Punctate nonobstructive stones in the left kidney. Left-sided extrarenal pelvis is again seen. There is no hydronephrosis. No ureteral stone. URINARY BLADDER: No significant abnormality REPRODUCTIVE ORGANS: Stable calcifications in the region of the uterus. BOWEL: Postoperative changes with left lower quadrant diverting colostomy. No evidence of acute bowel inflammation or obstruction. LYMPH NODES: No significant adenopathy. VASCULATURE: No significant abnormality. OTHER: No free air, free fluid, or focal fluid collection is identified. SKELETAL SYSTEM: No acute osseous findings. IMPRESSION: 1. No acute abnormality in the abdomen or pelvis. No evidence of bowel inflammation or obstruction. 2. Stable position of right ureteral stent without hydronephrosis. Punctate nonobstructive left nephr olithiasis. No ureteral stone or hydronephrosis on the left. 3. Other stable chronic, postoperative findings as above. Signer Name: Hadley Gonzalez MD Signed: 12/05/2021 9:51 PM Workstation Name: [id number]
[2021-12-05] MEDS ORDERED: ACETAMINOPHEN 325 MG TAB PO PRN (23:43)
[2021-12-05] MEDS ORDERED: MORPHINE 4 MG/1 ML INJ IV PRN (23:45)
[2021-12-05] MEDS ORDERED: MORPHINE 2 MG/1 ML INJ IV PRN (23:45)
[2021-12-05] MEDS ORDERED: MAGNESIUM HYDROXIDE (MOM) ORAL LIQD UDC PO PRN (23:45)
--- NOTE | 2021-12-05 23:53 | History and Physical Report ---
History of Present Illness Date of examination: 12/05/21 Date of admission: 12/05/2021 Chief complaint: Nausea and Vomiting Abdominal pain History of present illness: 41-year-old female with known history of cervical cancer, history of polysubstance abuse and uterine fibroids brought into the emergency room by EMS today for 2-day history of nausea and vomiting and abdominal pain. Patient has also had decreased responsiveness. Patient had undergone some chemotherapy sometime in October for cervical cancer and she also has colostomy in place. She denies any fever or chills, no chest pain or shortness of breath, no headache or dizziness and no diaphoresis. Patient states her abdominalpain is more in the lower abdomen. No no relieving or exacerbating factor. She denies any hematuria or dysuria. She denies any vaginal discharge and no vaginal bleeding. Work-up in the emergency room today, significant findings were that of BUN of 23 and creatinine of 2.1, potassium of 3.5. CT scan of the head was unremarkable. CT of the abdomen and pelvis shows no abnormalities of the abdomen and pelvis. Stable position of right ureteral stent without hydronephrosis. Punctate nonobstructive left nephrolithiasis Patient is being admitted with failure to thrive ,abdomoinal pain and has been commenced on IV fluid and IV analgesic medication. Past History Past Medical History: other ( cervical CA, DVT, Pericarditis, Ostomy) Past Surgical History: Other ( partial colon removed. Colostomy. , Ureteral stent) Medications and Allergies Allergies Allergy/AdvReac Type Severity Reaction Status Date / Time morphine Allergy Itching Verified 12/05/21 15:19 naloxone HCl [From Narcan] AdvReac Itching Verified 12/05/21 15:19 Home Medications Medication Instructions Recorded Confirmed Last Taken Type Dilaudid 8 mg PO QID 02/22/16 09/30/16 02/22/16 History Morphine TAB 60 mg PO BID 02/22/16 09/30/16 02/22/16 History Ciprofloxacin HCl [Ciprofloxacin 500 mg PO Q12H #20 tab 10/01/16 Unknown Rx TAB] Dicyclomine [Bentyl] 20 mg PO Q8H PRN #30 tablet 10/01/16 Unknown Rx Pantoprazole [Protonix] 40 mg PO QDAY #14 tablet 10/01/16 Unknown Rx Promethazine [Phenergan] 25 mg PO Q6HR PRN #15 tab 10/01/16 Unknown Rx metroNIDAZOLE [Flagyl] 500 mg PO Q8HR #30 tablet 10/01/16 Unknown Rx Phenazopyridine [Pyridium] 200 mg PO TID #6 tab 10/10/21 Unknown Rx Sulfamethoxazole/Trimethoprim 1 each PO BID #20 10/10/21 Unknown Rx [Bactrim DS TAB] levoFLOXacin [Levaquin TAB] 500 mg PO QDAY #10 tablet 10/10/21 Unknown Rx Active Meds: Active Medications Acetaminophen (Acetaminophen 325 Mg Tab) 650 mg PO Q4H PRN PRN Reason: Pain MILD(1-3)/Fever >100.5/KINSEY Hydromorphone HCl (Hydromorphone 1 Mg/1 Ml Inj) 1 mg IV Q3H LC Sodium Chloride (Nacl 0.9% 1000 Ml) 1,000 mls @ 125 mls/hr IV DIRECT LC Magnesium Hydroxide (Magnesium Hydroxide (Mom) Oral Liqd Udc) 30 ml PO Q4H PRN PRN Reason: Constipation Morphine Sulfate (Morphine 2 Mg/1 Ml Inj) 2 mg IV Q4H PRN PRN Reason: Pain, Moderate (4-6) Morphine Sulfate (Morphine 4 Mg/1 Ml Inj) 4 mg IV Q4H PRN PRN Reason: Pain , Severe (7-10) Ondansetron HCl (Ondansetron 4 Mg/2 Ml Inj) 4 mg IV Q8H PRN PRN Reason: Nausea And Vomiting Sodium Chloride (Sodium Chloride 0.9% 10 Ml Flush Syringe) 10 ml IV BID LC Sodium Chloride (Sodium Chloride 0.9% 10 Ml Flush Syringe) 10 ml IV PRN PRN PRN Reason: LINE FLUSH Review of Systems Constitutional: weakness, poor appetite, no fever, no chills Ears, nose, mouth and throat: no nasal congestion, no sore throat Cardiovascular: no chest pain, no palpitations Respiratory: no cough, no shortness of breath Gastrointestinal: abdominal pain, nausea, vomiting, no diarrhea Genitourinary Female: no pelvic pain, no flank pain, no hematuria Musculoskeletal: no neck pain, no low back pain Integumentary: no rash, no pruritis Neurological: no headaches, no confusion Psychiatric: no anxiety, no depression Endocrine: no polyphagia, no polydipsia, no polyuria, no nocturia Exam - Constitutional Vitals: Temp Pulse Resp BP Pulse Ox 98 F 67 20 115/77 100 12/05/21 15:14 12/05/21 15:14 12/05/21 15:14 12/05/21 17:01 12/05/21 19:25 General appearance: Present: no acute distress, cachectic - EENT Eyes: Present: PERRL, EOM intact ENT: hearing intact, clear oral mucosa, dentition normal - Neck Neck: Present: supple, normal ROM - Respiratory Respiratory effort: normal Respiratory: bilateral: CTA - Cardiovascular Rhythm: regular Heart Sounds: Present: S1 & S2. Absent: gallop, systolic murmur, diastolic murmur, rub, click - Extremities Extremities: no ischemia, pulses intact, pulses symmetrical, No edema, normal temperature, normal color, Full ROM - Abdominal General gastrointestinal: Present: soft, tender (Moderate guarding,No rebound tenderness.), non-distended, normal bowel sounds, other (Colostomy in place) - Integumentary Integumentary: Present: clear, warm, dry, decreased turgor. Absent: rash - Musculoskeletal Musculoskeletal: strength equal bilaterally - Psychiatric Psychiatric: appropriate mood/affect, intact judgment & insight, memory intact, cooperative - Neurologic Neurologic: CNII-XII intact, no focal deficits, moves all extremities Results - Labs CBC & Chem 7: 12/05/21 16:53 12/05/21 16:53 Labs: Abnormal lab results 12/05/21 12/05/21 12/05/21 Range/Units 16:53 16:53 16:53 RDW 16.3 H (13.2-15.2) % Seg Neutrophils % 78.6 H (40.0-70.0) % Potassium 3.5 L (3.6-5.0) mmol/L Carbon Dioxide 19 L (22-30) mmol/L BUN 23 H (7-17) mg/dL Creatinine 2.1 H (0.6-1.2) mg/dL Glucose 128 H (65-100) mg/dL POC Glucose (70-105) mg/dL Total Protein 9.3 H (6.3-8.2) g/dL TSH 0.178 L (0.270-4.200) mlU/mL 12/05/21 Range/Units 17:13 RDW (13.2-15.2) % Seg Neutrophils % (40.0-70.0) % Potassium (3.6-5.0) mmol/L Carbon Dioxide (22-30) mmol/L BUN (7-17) mg/dL Creatinine (0.6-1.2) mg/dL Glucose (65-100) mg/dL POC Glucose 142 H (70-105) mg/dL Total Protein (6.3-8.2) g/dL TSH (0.270-4.200) mlU/mL Assessment and Plan - Patient Problems (1) Abdominal pain Current Visit: No Status: Acute Qualifiers: Plan to address problem: Etiology unclear. Patient placed on IV analgesic medication. We will continue on IV fluid. (2) Failure to thrive in adult Current Visit: Yes Status: Acute Plan to address problem: Dietary consult placed for evaluation and recommendations. (3) Intractable nausea and vomiting Current Visit: No Status: Acute Plan to address problem: We will place on antiemetic. (4) Dehydration Current Visit: Yes Status: Acute Plan to address problem: Patient placed on IV fluid. Will monitor BUN and creatinine. (5) DVT prophylaxis Current Visit: No Status: Acute Plan to address problem: Patient placed on subcutaneous heparin. (6) Full code status Current Visit: Yes Status: Acute Plan to address problem: Patient is full code.
[2021-12-06] MEDS: HYDROmorphone 1 MG/1 ML INJ IV SCH ×4 (05:16→13:17)
[2021-12-06] MEDS: SODIUM CHLORIDE 0.9% 1000 ML 1,000 ML IV SCH ×3 (05:17→22:03)
[2021-12-06] MEDS: ONDANSETRON 4 MG/2 ML INJ IV PRN ×3 (05:28→22:45)
[2021-12-06 05:36] LABS: Calcium 8.8 mg/dL (8.4-10.2)
[2021-12-06 10:32] LABS: Bilirubin,Urine Negative (Negative); Blood,Urine 1+ (Negative); Protein,Urine >500 mg/dL (Negative); Urobilinogen,Urine < 2.0 mg/dL (<2.0); WBC,Urine > 182.0 /HPF (0.0-6.0)
[2021-12-06 10:33] LABS: Color,Urine Straw (Yellow)
--- NOTE | 2021-12-06 13:31 | Electrocardiograph Report ---
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
[2021-12-06] MEDS ORDERED: HYDROmorphone 1 MG/1 ML INJ IV SCH (14:29)
--- NOTE | 2021-12-06 14:42 | Progress Note ---
Assessment and Plan Assessment and plan: #Reported history of cervical cancer #Chronic abdominal pain -patient reports having cervical cancer and follows with Dr. Callejas at [facility]; last chemotherapy session in October -takes dilaudid 8mg BID and methadone at home; recently ran out of medications -CT abdomen pelvis unremarkable -PRN pain medications #Failure to thrive in adult -BMI 16.0, cachexia -nutrition consult #Intractable nausea and vomiting -resolved -continue PRN zofran -could be secondary to withdrawal from pain medications #Volume depletion -secondary to above problem -will continue IVFs. #history of CKD vs WOOD -SCr 2.0 on admission, improved from 3.2 in October -continue IVF -will repeat BMP tomorrow -likely secondary to volume depletion -will need outpatient Nephrology follow up History Interval history: No acute events. Patient reports being in constant pain that is not controlled with as needed pain medicines. She denies nausea and vomiting. She reports getting pain medicines from her oncologist and is unable to get refills until tomorrow. No other complaints at this time. Hospitalist Physical - Physical exam Narrative exam: GENERAL: Thin woman. In no acute distress. HEENT: Poor dentition. NECK: Supple. CHEST/LUNGS: CTAB on room air HEART/CARDIOVASCULAR: RRR. No murmur, rubs or gallops appreciated. ABDOMEN: +BS. NT/ND. SKIN: No rashes noted. NEURO: No focal motor deficit. Follows all commands. MUSCULOSKELETAL: No joint effusion EXTREMITIES: No cyanosis, clubbing or edema. PSYCH: Cooperative. - Constitutional Vitals: Temp Pulse Resp BP Pulse Ox 98.9 F 62 20 139/91 98 12/06/21 11:21 12/06/21 11:21 12/06/21 13:17 12/06/21 11:21 12/06/21 11:21 General appearance: Present: no acute distress, cachectic Results - Labs CBC & Chem 7: 12/05/21 16:53 12/06/21 04:48 Labs: Laboratory Last Values WBC 7.7 K/mm3 (4.5-11.0) 12/05/21 16:53 RBC 3.70 M/mm3 (3.65-5.03) 12/05/21 16:53 Hgb 11.4 gm/dl (10.1-14.3) 12/05/21 16:53 Hct 34.3 % (30.3-42.9) 12/05/21 16:53 MCV 93 fl (79-97) 12/05/21 16:53 MCH 31 pg (28-32) 12/05/21 16:53 MCHC 33 % (30-34) 12/05/21 16:53 RDW 16.3 % (13.2-15.2) H 12/05/21 16:53 Plt Count 353 K/mm3 (140-440) 12/05/21 16:53 Lymph % (Auto) 16.4 % (13.4-35.0) 12/05/21 16:53 Bland % (Auto) 4.3 % (0.0-7.3) 12/05/21 16:53 Eos % (Auto) 0.1 % (0.0-4.3) 12/05/21 16:53 Baso % (Auto) 0.6 % (0.0-1.8) 12/05/21 16:53 Lymph # (Auto) 1.3 K/mm3 (1.2-5.4) 12/05/21 16:53 Bland # (Auto) 0.3 K/mm3 (0.0-0.8) 12/05/21 16:53 Eos # (Auto) 0.0 K/mm3 (0.0-0.4) 12/05/21 16:53 Baso # (Auto) 0.0 K/mm3 (0.0-0.1) 12/05/21 16:53 Seg Neutrophils % 78.6 % (40.0-70.0) H 12/05/21 16:53 Seg Neutrophils # 6.1 K/mm3 (1.8-7.7) 12/05/21 16:53 PT 13.9 Sec. (12.2-14.9) 12/05/21 16:53 INR 0.97 (0.87-1.13) 12/05/21 16:53 APTT 24.7 Sec. (24.2-36.6) 12/05/21 16:53 Sodium 139 mmol/L (137-145) 12/06/21 04:48 Potassium 3.7 mmol/L (3.6-5.0) 12/06/21 04:48 Chloride 103.3 mmol/L (98-107) 12/06/21 04:48 Carbon Dioxide 19 mmol/L (22-30) L 12/06/21 04:48 Anion Gap 20 mmol/L 12/06/21 04:48 BUN 26 mg/dL (7-17) H 12/06/21 04:48 Creatinine 2.0 mg/dL (0.6-1.2) H 12/06/21 04:48 Estimated GFR 33 ml/min 12/06/21 04:48 BUN/Creatinine Ratio 13 % 12/06/21 04:48 Glucose 102 mg/dL (65-100) H 12/06/21 04:48 POC Glucose 142 mg/dL (70-105) H 12/05/21 17:13 Calcium 8.8 mg/dL (8.4-10.2) 12/06/21 04:48 Total Bilirubin 0.70 mg/dL (0.1-1.2) 12/05/21 16:53 AST 13 units/L (5-40) 12/05/21 16:53 ALT 8 units/L (7-56) 12/05/21 16:53 Alkaline Phosphatase 97 units/L (35-129) 12/05/21 16:53 Ammonia 57.0 umol/L (25-60) 12/05/21 16:53 Total Protein 9.3 g/dL (6.3-8.2) H 12/05/21 16:53 Albumin 4.6 g/dL (3.9-5) 12/05/21 16:53 Albumin/Globulin Ratio 1.0 % 12/05/21 16:53 TSH 0.178 mlU/mL (0.270-4.200) L 12/05/21 16:53 Urine Color Straw (Yellow) 12/05/21 09:25 Urine Turbidity Cloudy (Clear) 12/05/21 09:25 Urine pH 6.0 (5.0-7.0) 12/05/21 09:25 Ur Specific [place] 1.020 (1.003-1.030) 12/05/21 09:25 Urine Protein >500 mg/dL (Negative) 12/05/21 09:25 Urine Glucose (UA) Negative mg/dL (Negative) 12/05/21 09:25 Urine Ketones Negative mg/dL (Negative) 12/05/21 09:25 Urine Blood 1+ (Negative) 12/05/21 09:25 Urine Nitrite Negative (Negative) 12/05/21 09:25 Ur Reducing Substances Not Reportable 12/05/21 09:25 Urine Bilirubin Negative (Negative) 12/05/21 09:25 Urine Ictotest Not Reportable 12/05/21 09:25 Urine Urobilinogen < 2.0 mg/dL (<2.0) 12/05/21 09:25 Ur Leukocyte Esterase Large (Negative) 12/05/21 09:25 Urine WBC (Auto) > 182.0 /HPF (0.0-6.0) H 12/05/21 09:25 Urine RBC (Auto) 13.0 /HPF (0.0-6.0) 12/05/21 09:25 U Epithel Cells (Auto) 6.0 /HPF (0-13.0) 12/05/21 09:25 Urine WBC Clumps 3+ /HPF 12/05/21 09:25 Plasma/Serum Alcohol < 0.01 % (0-0.07) 12/05/21 16:53 Dunn/IV: Voiding Method Toilet Active Medications - Current Medications Current Medications: Generic Name Dose Route Start Last Admin Trade Name Freq PRN Reason Stop Dose Admin Acetaminophen 650 mg 12/05/21 23:43 12/06/21 06:02 Acetaminophen 325 Mg Tab PO 650 mg Q4H PRN Administration Pain MILD(1-3)/Fever >100.5/KINSEY Hydromorphone HCl 2 mg 12/06/21 14:29 Hydromorphone 1 Mg/1 Ml Inj IV Q3H LC Sodium Chloride 1,000 mls @ 125 mls/hr 12/05/21 23:45 12/06/21 13:24 Nacl 0.9% 1000 Ml IV 125 mls/hr DIRECT LC Administration Magnesium Hydroxide 30 ml 12/05/21 23:45 Magnesium Hydroxide (Mom) Oral Liqd Udc PO Q4H PRN Constipation Ondansetron HCl 4 mg 12/05/21 23:43 12/06/21 13:17 Ondansetron 4 Mg/2 Ml Inj IV 4 mg Q8H PRN Administration Nausea And Vomiting Sodium Chloride 10 ml 12/06/21 10:00 12/06/21 09:26 Sodium Chloride 0.9% 10 Ml Flush Syringe IV 10 ml BID LC Administration Sodium Chloride 10 ml 12/05/21 23:43 Sodium Chloride 0.9% 10 Ml Flush Syringe IV PRN PRN LINE FLUSH Nutrition/Malnutrition Assess - Dietary Evaluation Nutrition/Malnutrition Findings: Nutrition Notes Start: 12/06/21 12:06 Freq: Status: Active Protocol: Document 12/06/21 12:06 ELLEN (Rec: 12/06/21 12:33 ELLEN [id number]) Nutrition Notes Need for Assessment generated from: Low BMI Initial or Follow up Assessment Other Pertinent Diagnosis Abdominal Pain/N/V, Dehydration, Failure to Thrive , Cervical Cancer. Current Diet Regular Diet (since B 12/06). Labs/Tests 12/06: CO2 19, BUN 26, Crea 2. 0, Glu 102. Pertinent Medications 12/06: Nutritionally unremarkable. Height 5 ft 8 in Weight 47.627 kg [place] Body Weight (kg) 63.63 BMI 16.0 Intake Prior to Admission Good Weight change and time frame Pt demies having loss body weight recently. Weight Status Underweight Subjective/Other Information RD consult for Low BMI assessment. No reports available on Pt's PO intake of meals at the time . Pt has missing teeth, according to Physical Assessment History notes. Pt has colostomy bag in place [employer], according to Progress notes. Pt is currently on chemotherapy, according to Progress notes. Pt's Low BMI seems to correspond to a natural body composition, and might be related to her Failure to Thrive secondary to Pt's Cancer diagnosis and treatment , as mentioned in the Progress notes. Percent of energy/protein needs met: Prescribed Regular Diet provides for energy/protein needs (2,289 Kcal/89 g) during LOS; additionally, Dietary Supplements will compensate for possible poor or insufficient PO intake of meals with 700 Kcal and 40 g of protein. Burn Absent Trauma Absent GI Symptoms Nausea,Vomiting Food Allergy No Skin Integrity/Comment Colostomy site wound. Minimum of two criteria No #1 Nutrition Diagnosis Underweight Etiology Cervical Cancer/chemotherapy. As Evidenced by Signs and Symptoms Failure to Thrive. Is patient on ventilator? No Is Patient Ambulatory and/or Out of Bed Yes REE-(Stout-St. Jeor-ambulatory/OOB) [ 1540.201 NUTR.MSJOOB] Kcal/Kg value to use for calculation 38 Approximate Energy Requirements Using 1810 kcal/Kg Calculation Used for Recommendations Kcal/kg Additional Notes Protein: 1.2-1.5 g/Kg ABW; 58- 72 g/day. Fluids: 1 ml/Kcal, or as per MD. Nutrition Intervention Change Diet Order: Continue Regular Diet. Add Supplement/Snack (indicate name/kcal 8 fl oz Ensure Enlive: BID. /protein ) Provides kCal: 700 Provides Protein (gm) 40 Goal #1 Compensate, through dietary supplementation, for possible poor or insufficient PO intake of meals during LOS. Goal #2 Maintain body weight within +/ -3% of admission body weight during LOS. Follow-Up By: 12/13/21 Additional Comments Continue monitoring food tolerance, %PO intake of meals , and BM.
[2021-12-06] MEDS: HYDROmorphone 2 MG/1 ML INJ IV SCH ×3 (16:56→22:02)
[2021-12-07] MEDS: HYDROmorphone 2 MG/1 ML INJ IV SCH ×6 (01:08→16:14)
[2021-12-07] MEDS ORDERED: diphenhydrAMINE 50 MG/ML VIAL IV ONE ×2 (01:33→07:19)
[2021-12-07 06:20] VITALS: BP 113/78
[2021-12-07] MEDS: ONDANSETRON 4 MG/2 ML INJ IV PRN (06:28)
[2021-12-07] MEDS: SODIUM CHLORIDE 0.9% 1000 ML 1,000 ML IV SCH (06:34)
[2021-12-07 08:40] LABS: Calcium 8.2 mg/dL (8.4-10.2)
--- NOTE | 2021-12-07 09:18 | Discharge Summary ---
Providers - Providers Date of Admission: 12/05/21 23:43 Attending physician: JOSE M SANCHEZ MD 12/05/21 23:47 Consult to Dietitian/Nutrition [CONS] Routine Physician Instructions: Reason For Exam: Reason for Consult: Malnutrition Primary care physician: HELP DESK REPRESENTATIVE Hospitalization Condition: Serious Exam - Constitutional Vitals: Temp Pulse Resp BP Pulse Ox 98.4 F 71 16 113/78 99 12/07/21 04:00 12/07/21 04:00 12/07/21 04:00 12/07/21 04:00 12/07/21 04:00 Plan Care Plan Goals: Please follow up with your Primary care provider after discharge. You were dehydrated, please try to drink at least 8 glasses of water each day. Please follow up with your Oncologist for your pain medications. Follow up with: NATHALIE OCAMPO MD [Primary Care Provider] - 7 Days
[2021-12-07] MEDS ORDERED: diphenhydrAMINE 50 MG/ML VIAL IV SCH (09:30)
[2021-12-07] MEDS ORDERED: POTASSIUM CHLORIDE ER 20 MEQ TAB PO SCH (10:00)
[2021-12-07] MEDS ORDERED: POTASSIUM CHLORIDE 20 MEQ PACKET FEEDTUBE NR (11:30)
[2021-12-07] MEDS ORDERED: diphenhydrAMINE 50 MG/ML VIAL IV PRN (13:35)
== END 2021-12-07 18:45 | disposition home or self-care (01) ==
LOC: ED 15:08 → 3A 23:43 → INTOOBSV 23:43
PROVIDERS: ADMIT Internal Medicine Geriatric Medicine; ATTEND Student in an Organized Health Care Education/Training Program
DX: R62.7 Adult failure to thrive (principal); R11.2 Nausea with vomiting, unspecified; E86.0 Dehydration; R10.9 Unspecified abdominal pain; Z68.1 Body mass index [BMI] 19.9 or less, adult; Z79.899 Other long term (current) drug therapy; Z98.890 Other specified postprocedural states; Z86.718 Personal history of other venous thrombosis and embolism; Z85.41 Personal history of malignant neoplasm of cervix uteri
CPT/HCPCS: 36415; 70450; 71045; 74176; 80048; 80053; 81001; 82140; 82962; 84443; 85025; 85610; 85730; 93005; 93010; 96361; 96372; 96374; 96375; 96376; 99285; G0378; J1170; J1200; J2405; J2765; J7030; 80320; J3490; Q0162; G0480